=== PATIENT | female | born 2000 | race Caucasian/White ===

== ENCOUNTER → 2019-12-04 | Outpatient (REF) | payer OTHER | LOC: M SFHCWAGY 13:32 | PROVIDERS: ATTEND Advanced Practice Midwife | DX: Z01.419 Encounter for gynecological examination (general) (routine) without abnormal findings (principal); Z12.4 Encounter for screening for malignant neoplasm of cervix | CPT/HCPCS: 87624; G0123 ==

== ENCOUNTER 2020-02-20 15:02 | Emergency (ER) | payer OTHER, BC ==
[~2020-02-20] VITALS: Ht 160 cm; Wt 69.8 kg
[2020-02-20 15:03] VITALS: BP 123/56
[2020-02-20] MEDS ORDERED: CRYS28TA PO (15:20)
== END 2020-02-20 16:22 | disposition home or self-care (01) ==
LOC: M ED 15:02
DX: M79.10 Myalgia, unspecified site (principal)

== ENCOUNTER → 2021-02-04 | Outpatient (REF) | payer OTHER ==
[~2021-02-04] MED LIST: CRYS28TA PO
== END ==
LOC: M SFHCWAGY 17:30
PROVIDERS: ATTEND Advanced Practice Midwife
DX: Z01.419 Encounter for gynecological examination (general) (routine) without abnormal findings (principal); Z12.4 Encounter for screening for malignant neoplasm of cervix; R87.610 Atypical squamous cells of undetermined significance on cytologic smear of cervix (ASC-US)